=== PATIENT | male | born 1990 | race Caucasian/White ===

== ENCOUNTER 2016-09-21 08:16 | Inpatient (IN) | payer MEDICARE ==
[2016-09-21 14:12] VITALS: BMI 25.0
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
[2016-09-21] MEDS ORDERED: diphenhydrAMINE HCL 50 MG CAPSULE PO PRN (16:32)
[2016-09-21] MEDS ORDERED: hydrOXYzine PAMOATE 50 MG CAPSULE (FP) PO PRN (16:32)
[2016-09-21] MEDS ORDERED: MAGNESIUM HYDROX 2400MG/30ML ORAL SUSPENSION 30 ML CUP PO PRN (16:32)
[2016-09-21] MEDS ORDERED: guaiFENesin/D-METHORPHAN HB 10 ML UNIT-DOSE CUPS PO PRN (16:32)
[2016-09-21] MEDS ORDERED: chlordiazePOXIDE HCL 25 MG CAPSULE PO PRN (16:32)
[2016-09-21] MEDS ORDERED: MENTHOL/PHENOL 1 EACH UD MM PRN (16:32)
[2016-09-21] MEDS ORDERED: MAGNESIUM CITRATE 300 ML BOTTLE PO PRN (16:32)
[2016-09-21] MEDS ORDERED: NICOTINE POLACRILEX 4 MG GUM BC PRN (16:32)
[2016-09-21] MEDS ORDERED: LOPERAMIDE HCL 2 MG CAPSULE PO PRN (16:32)
[2016-09-21] MEDS ORDERED: MAG HYDROX/AL HYDROX/SIMETH 30 ML UNIT-DOSE CUP PO PRN (16:32)
[2016-09-21] MEDS ORDERED: IBUPROFEN 400 MG TABLET (FP) PO PRN (16:32)
[2016-09-21] MEDS ORDERED: ACETAMINOPHEN 325 MG TABLET (FP) PO PRN (16:32)
[2016-09-21] MEDS ORDERED: P-EPHED 60MG/TRIPROLIDI 2.5MG TABLET PO PRN (16:32)
[2016-09-21] MEDS ORDERED: WITCH HAZEL 50% (TUCKS) 40 PAD/JAR PAD TP PRN (16:37)
[2016-09-21] MEDS ORDERED: chlordiazePOXIDE HCL 25 MG CAPSULE PO ONE (17:15)
[2016-09-21] MEDS ORDERED: METHADONE HCL 10 MG TABLET (FOR DETOX USE ONLY) PO ONE ×2 (17:15→23:00)
[2016-09-21] MEDS: chlordiazePOXIDE HCL 25 MG CAPSULE PO SCH ×2 (18:05→22:39)
[2016-09-21] MEDS: NICOTINE 21 MG/24 HOURS TOPICAL PATCH TD SCH (18:07)
[2016-09-21] MEDS ORDERED: THIAMINE HCL 100 MG TABLET (FP) PO SCH (22:00)
[2016-09-21 22:44] LABS: URINE APPEARANCE CLOUDY; URINE BILIRUBIN NEGATIVE (NEGATIVE); URINE BLOOD NEGATIVE (NEGATIVE); URINE COLOR DKYELLOW; URINE GLUCOSE (UA) NEGATIVE (NEGATIVE); URINE KETONE NEGATIVE (NEGATIVE); URINE LEUK ESTERASE NEGATIVE (NEGATIVE); URINE NITRITE NEGATIVE (NEGATIVE); URINE PROTEIN NEGATIVE (NEGATIVE); URINE UROBILINOGEN 4.0 E.U/dl E.U./dl (0.2-1.0)
[2016-09-22] MEDS: chlordiazePOXIDE HCL 25 MG CAPSULE PO SCH ×2 (05:32→10:36)
[2016-09-22 09:39] VITALS: BP 117/72; PULSE 67; TEMP 97
[2016-09-22] MEDS ORDERED: METHADONE HCL 10 MG TABLET (FOR DETOX USE ONLY) PO SCH (10:00)
[2016-09-22] MEDS ORDERED: PRENATAL VITAMINS W/ FOLIC ACID TABLET (FP) PO SCH (10:00)
--- NOTE | 2016-09-22 10:09 | EKG ---
Test Reason : Blood Pressure : / mmHG Vent. Rate : 063 BPM Atrial Rate : 063 BPM P-R Int : 126 ms QRS Dur : 092 ms QT Int : 428 ms P-R-T Axes : 047 081 072 degrees QTc Int : 437 ms NORMAL SINUS RHYTHM NORMAL ECG NO PREVIOUS ECGS AVAILABLE Confirmed by BARBIE BARAJAS MD ([id number]) on 09/22/2016 10:09:37 AM Referred By: Confirmed By:BARBIE BARAJAS MD
[2016-09-22 10:21] LABS: MCH 29.9 pg (25.7-33.7); MCHC 33.8 g/dl (32.0-35.9); MEAN CELL VOLUME 88.4 fl (80-96); MEAN PLT VOLUME 9.5 fl (7.5-11.1); PLATELET COUNT 229 K/MM3 (134-434); RDW 13.3 % (11.9-15.9); WHITE BLOOD COUNT 8.3 K/mm3 (4.0-10.0)
[2016-09-22] MEDS: NICOTINE 21 MG/24 HOURS TOPICAL PATCH TD SCH (10:36)
[2016-09-22 11:41] LABS: ALK PHOS 69 U/L (45-117); ANION GAP 8 (8-16); BILIRUBIN,TOTAL 0.4 mg/dL (0.2-1.0); CALCIUM 8.9 mg/dL (8.5-10.1); CO2 27 mmol/L (21-32); COCKROFT - GAULT 159.59; CREATININE 0.9 mg/dL (0.7-1.3); GLUCOSE,RANDOM 87 mg/dL (74-106); SGOT/AST 62 U/L (15-37); SGPT/ALT 41 U/L (12-78); TOT PROT 7.4 g/dl (6.4-8.2)
--- NOTE | 2016-09-22 11:43 | DS ---
[facility] Detox Discharge Summary Admission Date: 09/21/16 Discharge Date: 09/22/16 - History Present History: Alcohol Dependence, Cannabis Dependence - Physical Exam Results Vital Signs: Vital Signs Temperature 97 F L 09/22/16 09:39 Pulse Rate 67 09/22/16 09:39 Respiratory Rate 18 09/22/16 09:39 Blood Pressure 117/72 09/22/16 09:39 O2 Sat by Pulse Oximetry (%) Pertinent Admission Physical Exam Findings: withdrawal sx Laboratory Last Values WBC 8.3 K/mm3 (4.0-10.0) 09/22/16 06:16 RBC 4.42 M/mm3 (4.00-5.60) 09/22/16 06:16 Hgb 13.2 GM/dL (11.7-16.9) 09/22/16 06:16 Hct 39.0 % (35.4-49) 09/22/16 06:16 MCV 88.4 fl (80-96) 09/22/16 06:16 MCHC 33.8 g/dl (32.0-35.9) 09/22/16 06:16 RDW 13.3 % (11.9-15.9) 09/22/16 06:16 Plt Count 229 K/MM3 (134-434) 09/22/16 06:16 MPV 9.5 fl (7.5-11.1) 09/22/16 06:16 Urine Color Dkyellow 09/21/16 21:30 Urine Appearance Cloudy 09/21/16 21:30 Urine pH 6.0 (5.0-8.0) 09/21/16 21:30 Ur Specific [place] 1.025 (1.001-1.035) 09/21/16 21:30 Urine Protein Negative (NEGATIVE) 09/21/16 21:30 Urine Glucose (UA) Negative (NEGATIVE) 09/21/16 21:30 Urine Ketones Negative (NEGATIVE) 09/21/16 21:30 Urine Blood Negative (NEGATIVE) 09/21/16 21:30 Urine Nitrite Negative (NEGATIVE) 09/21/16 21:30 Urine Bilirubin Negative (NEGATIVE) 09/21/16 21:30 Urine Urobilinogen 4.0 e.u/dl E.U./dl (0.2-1.0) 09/21/16 21:30 Ur Leukocyte Esterase Negative (NEGATIVE) 09/21/16 21:30 labs pending - Medication Discharge Medications: Ambulatory Orders NK [No Known Home Medication] 09/21/16 - Diagnosis (1) Alcohol dependence with uncomplicated withdrawal Status: Acute (2) Cannabis dependence, uncomplicated Status: Acute (3) Opioid dependence with withdrawal Status: Acute (4) Bipolar disorder Status: Chronic Qualifiers: Active/Remission status: remission status unspecified Qualified Code (s): F31.9 - Bipolar disorder, unspecified (5) Depression Status: Chronic Qualifiers: Depression Type: unspecified Qualified Code(s): F32.9 - Major depressive disorder, single episode, unspecified (6) Nicotine dependence Status: Acute Qualifiers: Nicotine product type: cigarettes Substance use status: uncomplicated Qualified Code(s): F17.210 - Nicotine dependence, cigarettes, uncomplicated - AMA Did Patient Leave Against Medical Advice: No (Patient discharged for not following protocol, pls see note)
--- NOTE | 2016-09-22 12:41 | PN ---
[facility] Progress Note Note: Patient was evaluated this morning, he denied acute distress except for mild withdrawal symptoms. Shortly after that, he was spotted by staff accepting cigarette from a discharged patient through a sealed window which was found opened. He was discharged for not following institutional policy.
[2016-09-22 13:19] LABS: HIV 1 & 2 AB NEGATIVE; HIV 1 AGp24 NEGATIVE
[2016-09-22] MEDS ORDERED: chlordiazePOXIDE HCL 25 MG CAPSULE PO SCH (17:00)
[2016-09-23] MEDS ORDERED: METHADONE HCL 5 MG TABLET (FOR DETOX USE ONLY) PO SCH (10:00)
[2016-09-23] MEDS ORDERED: chlordiazePOXIDE 5 MG CAPSULE PO SCH (17:00)
[2016-09-24] MEDS ORDERED: chlordiazePOXIDE HCL 10 MG CAPSULE PO SCH (17:00)
[2016-09-25] MEDS ORDERED: METHADONE HCL 10 MG TABLET (FOR DETOX USE ONLY) PO SCH (10:00)
[2016-09-26] MEDS ORDERED: METHADONE HCL 5 MG TABLET (FOR DETOX USE ONLY) PO SCH (06:00)
== END 2016-09-22 11:08 | disposition home or self-care (01) | DRG 773 ==
LOC: YASAS 08:16 → Y3N 15:46
PROVIDERS: ADMIT Internal Medicine; ATTEND Internal Medicine
PROC: HZ2ZZZZ Detoxification Services for Substance Abuse Treatment (ICD-10-PCS; principal; 2016-09-22)
DX: F11.23 Opioid dependence with withdrawal (principal); F10.230 Alcohol dependence with withdrawal, uncomplicated; F12.20 Cannabis dependence, uncomplicated; F17.210 Nicotine dependence, cigarettes, uncomplicated; F33.9 Major depressive disorder, recurrent, unspecified; F31.9 Bipolar disorder, unspecified; S05.92XA Unspecified injury of left eye and orbit, initial encounter; Z59.0 Homelessness; F91.8 Other conduct disorders
CPT/HCPCS: 36415; 80053; 81003; 85027; 86593; 87389; 93005; 93010

== ENCOUNTER 2017-03-28 01:26 | Inpatient (IN) | payer OTHER ==
--- NOTE | 2017-03-28 01:50 | HP ---
COWS - Scale Resting Pulse: 1= SC 81-100 Sweatin=Flushed/Facial Moisture Restless Observation: 5= Unable to Sit Still Pupil Size: 1= Pupils >than Normal Bone or Joint Aches: 4=Acute Joint/Muscle Pain Runny Nose/ Eye Tearin= Nasal Congestion GI Upset > 30mins: 3= Vomiting/Diarrhea Tremor Observation: 2= Slight Tremor Visible Yawning Observation: 0= None Anxiety or Irritability: 2=Irritable/Anxious Goose Flesh Skin: 0=Smooth Skin COWS Score: 21 Admission ROS [facility] Chief Complaint: seeking detox for heroin dependence Allergies/Adverse Reactions: Allergies Allergy/AdvReac Type Severity Reaction Status Date / Time Fish Containing Products Allergy Swelling Verified 09/21/16 15:38 No Known Drug Allergies Allergy Verified 03/28/17 01:44 NKDA Allergy Uncoded 09/21/16 15:38 History of Present Illness: 27 Y.O. MALE WITH HX/O OPIOID DEPENDNECE HER FOR ADMISSION TO DETOX. CLIENT IS KNOWN TO THIS PROGRAM LAST HERE 09/2016. HE IS SELF REFERRED. DENIES ANY SIGNIFICANT PERIOD OF CLEAN TIME. Exam Limitations: No Limitations - Ebola screening Have you traveled outside of the country in the last 21 days: No Have you had contact with anyone from an Ebola affected area: No Have you been sick,other than usual withdrawal symptoms: No Do you have a fever: No - Review of Systems Constitutional: Chills, Loss of Appetite, Malaise, Night Sweats, Changes in sleep, Unintentional Wgt. Loss EENT: reports: Nose Congestion, Dental Problems (MISSING TEETH) Respiratory: reports: No Symptoms reported Cardiac: reports: No Symptoms Reported GI: reports: Nausea, Poor Appetite, Vomiting : reports: Dysuria Musculoskeletal: reports: Back Pain, Joint Pain Integumentary: reports: No Symptoms Reported Neuro: reports: No Symptoms reported Endocrine: reports: No Symptoms Reported Hematology: reports: No Symptoms Reported Psychiatric: reports: Anxious, Depressed Other Systems: Reviewed and Negative Patient History - Patient Medical History Hx Anemia: No Hx Asthma: No Hx Chronic Obstructive Pulmonary Disease (COPD): No Hx Cancer: No Hx Cardiac Disorders: No Hx Congestive Heart Failure: No Hx Hypertension: No Hx Hypercholesterolemia: No Hx Pacemaker: No HX Cerebrovascular Accident: No Hx Seizures: No Hx Dementia: No Hx Diabetes: No Hx Gastrointestinal Disorders: No Hx Liver Disease: No Hx Genitourinary Disorders: No Hx Sexually Transmitted Disorders: No Hx Renal Disease (ESRD): No Hx Thyroid Disease: No Hx Human Immunodeficiency Virus (HIV): No Hx Hepatitis C: No Hx Depression: Yes Hx Suicide Attempt: No Hx Bipolar Disorder: Yes Hx Schizophrenia: No Other Medical History: SCHIZO AFEECTIVE - Patient Surgical History Past Surgical History: No Hx Neurologic Surgery: No Hx Cataract Extraction: No Hx Cardiac Surgery: No Hx Lung Surgery: No Hx Breast Surgery: No Hx Breast Biopsy: No Hx Abdominal Surgery: No Hx Appendectomy: No Hx Cholecystectomy: No Hx Genitourinary Surgery: No Hx Section: No Hx Orthopedic Surgery: No Anesthesia Reaction: No - PPD History Previous Implant?: Yes Documented Results: Negative w/o proof Implanted On Prior [facility] Admission?: Yes Date: 09/23/16 (ADMIN DC) PPD to be Administered?: Yes - Smoking Cessation Smoking history: Current every day smoker Have you smoked in the past 12 months: Yes Aproximately how many cigarettes per day: 30 Cigars Per Day: 0 Hx Chewing Tobacco Use: No Initiated information on smoking cessation: Yes 'Breaking Loose' booklet given: 03/28/17 - Substance & Tx. History Hx Alcohol Use: No Hx Substance Use: Yes Substance Use Type: Heroin Hx Substance Use Treatment: Yes ([facility]) - Substances Abused HEROIN Route: Injection Frequency: Daily Amount used: 6 Age of first use: 22 Date of Last Use: 03/26/17 Family Disease History - Family Disease History Family History: Denies Admission Physical Exam [facility] - Physical General Appearance: Yes: Appropriately Dressed, Tremorous, Anxious HEENTM: Yes: Nasal Congestion Respiratory: Yes: Chest Non-Tender, Lungs Clear, Normal Breath Sounds, No Respiratory Distress, No Accessory Muscle Use Neck: Yes: No masses,lesions,Nodules, Supple, Trachea in good position Breast: Yes: Breast Exam Deferred Cardiology: Yes: Regular Rhythm, Regular Rate, S1, S2 Abdominal: Yes: Normal Bowel Sounds, Non Tender, Flat, Soft Genitourinary: Yes: Dysuria (PT REPORTS) Back: Yes: Normal Inspection Musculoskeletal: Yes: full range of Motion, Gait Steady Extremities: Yes: Normal Capillary Refill, Normal Range of Motion, Non-Tender, Tremors Neurological: Yes: polisher balance screwhead II-XII NML intact, Fully Oriented, Alert, Motor Strength 5/5 Integumentary: Yes: Normal Color, Dry, Warm, Track Davis Lymphatic: Yes: Within Normal Limits - Diagnostic (1) Cannabis dependence, uncomplicated Current Visit: Yes Status: Chronic (2) Nicotine dependence Current Visit: Yes Status: Chronic Qualifiers: Nicotine product type: cigarettes Substance use status: uncomplicated Qualified Code(s): F17.210 - Nicotine dependence, cigarettes, uncomplicated; F17.210 - Nicotine dependence, cigarettes, uncomplicated (3) Opioid dependence with withdrawal Current Visit: Yes Status: Chronic (4) Cocaine dependence, uncomplicated Current Visit: Yes Status: Chronic Cleared for Admission [facility] - Detox or Rehab [facility] Level of Care: Medically Managed Detox Regimen/Protocol: Methadone [facility] Breath Alcohol Content Breath Alcohol Content: 0 Vital Signs - Vital Signs Vital Signs Refused: No Temperature: 96.1 F Temperature Source: Oral Pulse Rate: 97 Respiratory Rate: 20 Blood Pressure: 134/77 BP Location: Left Arm Blood Pressure Position: Sitting - Height Height: 6 ft 3 in - Weight Weight: 81.647 kg Weight Measurement Method: Standing Scale Body Mass Index (BMI): 22.5 Urine Drug Screen - Test Device Lot Number: [id number] Expiration Date: 11/30/18 - Control Is Test Valid: Yes - Results Drug Screen Negative: No Urine Drug Screen Results: THC-Marijuana, DENIZ-Cocaine, OPI-Opiates, AMP- Amphetamines, MET-Methamphetamine
[2017-03-28 02:01] VITALS: BMI 22.5
[2017-03-28] MEDS ORDERED: LOPERAMIDE HCL 2 MG CAPSULE PO PRN (02:01)
[2017-03-28] MEDS ORDERED: P-EPHED 60MG/TRIPROLIDI 2.5MG TABLET PO PRN (02:01)
[2017-03-28] MEDS ORDERED: METHADONE HCL 10 MG TABLET (FOR DETOX USE ONLY) PO ONE ×3 (02:01→23:00)
[2017-03-28] MEDS ORDERED: guaiFENesin/D-METHORPHAN HB 10 ML UNIT-DOSE CUPS PO PRN (02:01)
[2017-03-28] MEDS ORDERED: MAGNESIUM CITRATE 300 ML BOTTLE PO PRN (02:01)
[2017-03-28] MEDS ORDERED: MENTHOL/PHENOL 1 EACH UD MM PRN (02:01)
[2017-03-28] MEDS ORDERED: diphenhydrAMINE HCL 50 MG CAPSULE PO PRN (02:01)
[2017-03-28] MEDS ORDERED: MAGNESIUM HYDROX 2400MG/30ML ORAL SUSPENSION 30 ML CUP PO PRN (02:01)
[2017-03-28] MEDS ORDERED: ACETAMINOPHEN 325 MG TABLET (FP) PO PRN (02:01)
[2017-03-28] MEDS ORDERED: IBUPROFEN 400 MG TABLET (FP) PO PRN (02:01)
[2017-03-28] MEDS ORDERED: MAG HYDROX/AL HYDROX/SIMETH 30 ML UNIT-DOSE CUP PO PRN (02:01)
[2017-03-28] MEDS: diazePAM 5 MG TABLET PO PRN ×4 (02:27→22:44)
[2017-03-28 10:13] LABS: MCH 28.7 pg (25.7-33.7); MCHC 33.4 g/dl (32.0-35.9); MEAN CELL VOLUME 86.1 fl (80-96); MEAN PLT VOLUME 8.4 fl (7.5-11.1); PLATELET COUNT 260 K/MM3 (134-434); RDW 13.7 % (11.9-15.9); WHITE BLOOD COUNT 7.2 K/mm3 (4.0-10.0)
--- NOTE | 2017-03-28 10:15 | CONSULT ---
[facility] Psychiatric Consult - Data Date of interview: 03/28/17 Admission source: [facility] Identifying data: This is 27 years old male with psychiatric hospitalization history ointoxicated with: Cocaine, Cannabis, Opioids, Methamphetamins, Nicotine Substance Abuse History: Urine Drug Screen Results: THC-Marijuana, DENIZ-Cocaine, OPI-Opiates, AMP-Amphetamines, MET-Methamphetamine. - Smoking Cessation. Smoking history: Current every day smoker. Have you smoked in the past 12 months: Yes. Aproximately how many cigarettes per day: 30. Cigars Per Day: 0. Hx Chewing Tobacco Use: No. Initiated information on smoking cessation: Yes. 'Breaking Loose' booklet given: 03/28/17. - Substance & Tx. History. Hx Alcohol Use: No. Hx Substance Use: Yes. Substance Use Type: Heroin. Hx Substance Use Treatment: Yes ([facility]). - Substances Abused. HEROIN. Route: Injection. Frequency: Daily. Amount used: 6. Age of first use: 22. Date of Last Use: 03/26/17 Medical History: Left beye injury history Psychiatric History: Reports hsitory of Bipolar disorder, [facility];ear psychiatric hospitalization on n2016 for safety at [facility], reports taking prior to admission: Seroquel 100mg po qhs Physical/Sexual Abuse/Trauma History: Denies Additional Comment: Urine Drug Screen Results: THC-Marijuana, DENIZ-Cocaine, OPI- Opiates, AMP-Amphetamines, MET-Methamphetamine. Seroquel 100mg po qhs Mental Status Exam - Mental Status Exam Alert and Oriented to: Place, Person Cognitive Function: Fair Patient Appearance: Well Groomed Mood: Apprehensive Affect: Mood Congruent Patient Behavior: Guarded, Cooperative Speech Pattern: Appropriate Voice Loudness: Normal Thought Process: Goal Oriented Thought Disorder: Being Controlled Hallucinations: Denies Suicidal Ideation: Denies Homicidal Ideation: Denies Insight/Judgement: Fair Sleep: Difficulty falling asleep Appetite: Fair Muscle strength/Tone: Normal Gait/Station: Normal Additional Comments: Seroquel 100mg po qhs Psychiatric Findings - Problem List ([place] 1, 2,3) (1) Cannabis dependence, uncomplicated Current Visit: Yes Status: Chronic (2) Cocaine dependence, uncomplicated Current Visit: Yes Status: Chronic (3) Nicotine dependence Current Visit: Yes Status: Chronic Qualifiers: Nicotine product type: cigarettes Substance use status: uncomplicated Qualified Code(s): F17.210 - Nicotine dependence, cigarettes, uncomplicated; F17.210 - Nicotine dependence, cigarettes, uncomplicated (4) Opioid dependence with withdrawal Current Visit: Yes Status: Chronic (5) Alcohol dependence with uncomplicated withdrawal Current Visit: No Status: Acute (6) Bipolar disorder Current Visit: No Status: Chronic Qualifiers: Active/Remission status: remission status unspecified Qualified Code (s): F31.9 - Bipolar disorder, unspecified; F31.9 - Bipolar disorder, unspecified; F31.9 - Bipolar disorder, unspecified; F31.9 - Bipolar disorder, unspecified (7) Drug-induced mood disorder Current Visit: Yes Status: Acute - Initial Treatment Plan Initial Treatment Plan: Seroquel 100mg po qhs
[2017-03-28] MEDS: PRENATAL VITAMINS W/ FOLIC ACID TABLET (FP) PO SCH (10:18)
[2017-03-28] MEDS: NICOTINE 21 MG/24 HOURS TOPICAL PATCH TD SCH (10:19)
--- NOTE | 2017-03-28 10:44 | EKG ---
Test Reason : Blood Pressure : / mmHG Vent. Rate : 082 BPM Atrial Rate : 082 BPM P-R Int : 136 ms QRS Dur : 096 ms QT Int : 390 ms P-R-T Axes : 072 084 072 degrees QTc Int : 455 ms NORMAL SINUS RHYTHM NORMAL ECG WHEN COMPARED WITH ECG OF 21-SEP-2016 17:13, NO SIGNIFICANT CHANGE WAS FOUND Confirmed by SIDRA CRUZ MD ([id number]) on 03/28/2017 10:44:34 AM Referred By: Confirmed By:SIDRA CRUZ MD
[2017-03-28 11:13] LABS: ALBUMIN 3.1 g/dl (3.4-5.0); ALK PHOS 75 U/L (45-117); ANION GAP 8 (8-16); BILIRUBIN,TOTAL 0.4 mg/dL (0.2-1.0); CALCIUM 8.1 mg/dL (8.5-10.1); CO2 27 mmol/L (21-32); CREATININE 0.6 mg/dL (0.7-1.3); GLUCOSE,RANDOM 85 mg/dL (74-106); SGOT/AST 56 U/L (15-37); SGPT/ALT 40 U/L (12-78); TOT PROT 6.2 g/dl (6.4-8.2)
[2017-03-28] MEDS ORDERED: POTASSIUM CHLORIDE TABS 20 MEQ TABLET.ER (FP) PO ONE (13:05)
--- NOTE | 2017-03-28 13:07 | PN ---
[facility] COWS - Scale Resting Pulse: 0= IN 80 or Below Sweatin= Chills/Flushing Restless Observation: 1= Difficult to Sit Still Pupil Size: 0= Normal to Room Light Bone or Joint Aches: 2= Severe Diffuse Aches Runny Nose/ Eye Tearin= None GI Upset > 30mins: 3= Vomiting/Diarrhea Tremor Observation of Outstretched Hands: 2= Slight Tremor Visible Yawning Observation: 1= 1-2x During Session Anxiety or Irritability: 2=Irritable/Anxious Goose Flesh Skin: 3=Piloerection COWS Score: 15 [facility]HS Progress Note (SOAP) Subjective: Sweating, Vomiting, H/A, Body Aches, Tremors. Objective: PT. A & O X 2 (DISORIENTED ABOUT DAY / DATE). PT. OBSERVED AMBULATING ON UNIT. NO ACUTE DISTRESS. 03/28/17 13:04 Vital Signs Temperature 96.8 F L 03/28/17 09:10 Pulse Rate 78 03/28/17 09:10 Respiratory Rate 20 03/28/17 09:10 Blood Pressure 131/74 03/28/17 09:10 O2 Sat by Pulse Oximetry (%) Laboratory Tests 03/28/17 03/28/17 07:00 07:00 WBC 7.2 RBC 4.03 Hgb 11.6 L D Hct 34.7 L MCV 86.1 MCH 28.7 MCHC 33.4 RDW 13.7 Plt Count 260 MPV 8.4 D Sodium 137 Potassium 3.1 L D Chloride 102 Carbon Dioxide 27 Anion Gap 8 BUN 10 D Creatinine 0.6 L D Creat Clearance w eGFR > 60 Random Glucose 85 Calcium 8.1 L Total Bilirubin 0.4 AST 56 H ALT 40 Alkaline Phosphatase 75 Total Protein 6.2 L Albumin 3.1 L D LABS NOTED. RPR, HIV AB, AND UA RESULTS PENDING. 03/28/17 13:06 03/28/17 13:07 Assessment: 03/28/17 13:04 WITHDRAWAL SYMPTOMS. Plan: CONTINUE DETOX. K-DUR, 20 MEQ PO X 1 NOW, THEN 20 MEQ PO BID AFTER.
[2017-03-28 15:15] LABS: HIV 1 & 2 AB NEGATIVE; HIV 1 AGp24 NEGATIVE
[2017-03-28] MEDS: POTASSIUM CHLORIDE TABS 20 MEQ TABLET.ER (FP) PO SCH (17:41)
[2017-03-28] MEDS: THIAMINE HCL 100 MG TABLET (FP) PO SCH (22:44)
[2017-03-28] MEDS: QUEtiapine FUMARATE 100 MG TABLET (FP) PO SCH (22:44)
[2017-03-29] MEDS ORDERED: METHADONE HCL 10 MG TABLET (FOR DETOX USE ONLY) PO ONE (10:00)
[2017-03-29] MEDS: NICOTINE 21 MG/24 HOURS TOPICAL PATCH TD SCH (10:38)
[2017-03-29] MEDS: POTASSIUM CHLORIDE TABS 20 MEQ TABLET.ER (FP) PO SCH ×2 (10:40→19:30)
[2017-03-29] MEDS: PRENATAL VITAMINS W/ FOLIC ACID TABLET (FP) PO SCH (10:40)
[2017-03-29] MEDS: diazePAM 5 MG TABLET PO PRN ×2 (10:40→22:21)
--- NOTE | 2017-03-29 12:33 | PN ---
[facility] COWS - Scale Resting Pulse: 1= NC 81-100 Sweatin= Chills/Flushing Restless Observation: 1= Difficult to Sit Still Pupil Size: 0= Normal to Room Light Bone or Joint Aches: 2= Severe Diffuse Aches Runny Nose/ Eye Tearin= Nasal Congestion GI Upset > 30mins: 2= Nausea/Diarrhea Tremor Observation of Outstretched Hands: 0= None Yawning Observation: 1= 1-2x During Session Anxiety or Irritability: 2=Irritable/Anxious Goose Flesh Skin: 3=Piloerection COWS Score: 14 B[facility] Progress Note (SOAP) Subjective: Sweating, Fatigue, Diarrhea, Stomach Cramping, Body Aches. Objective: PT. A & O X 2 (DISORIENTED ABOUT DAY /DATE). PT. OBSERVED AMBULATING ON UNIT. NO ACUTE DISTRESS. 03/29/17 12:35 Vital Signs Temperature 97.5 F L 03/29/17 10:00 Pulse Rate 99 H 03/29/17 10:00 Respiratory Rate 18 03/29/17 10:00 Blood Pressure 126/76 03/29/17 10:00 O2 Sat by Pulse Oximetry (%) Laboratory Tests 03/28/17 03/28/17 03/28/17 07:00 07:00 07:00 WBC 7.2 RBC 4.03 Hgb 11.6 L D Hct 34.7 L MCV 86.1 MCH 28.7 MCHC 33.4 RDW 13.7 Plt Count 260 MPV 8.4 D Sodium 137 Potassium 3.1 L D Chloride 102 Carbon Dioxide 27 Anion Gap 8 BUN 10 D Creatinine 0.6 L D Creat Clearance w eGFR > 60 Random Glucose 85 Calcium 8.1 L Total Bilirubin 0.4 AST 56 H ALT 40 Alkaline Phosphatase 75 Total Protein 6.2 L Albumin 3.1 L D RPR Titer Nonreactive HIV 1&2 Antibody Screen HIV P24 Antigen 03/28/17 07:00 WBC RBC Hgb Hct MCV MCH MCHC RDW Plt Count MPV Sodium Potassium Chloride Carbon Dioxide Anion Gap BUN Creatinine Creat Clearance w eGFR Random Glucose Calcium Total Bilirubin AST ALT Alkaline Phosphatase Total Protein Albumin RPR Titer HIV 1&2 Antibody Screen Negative HIV P24 Antigen Negative LABS NOTED. UA RESULTS PENDING. 03/29/17 12:37 Assessment: 03/29/17 12:36 WITHDRAWAL SYMPTOMS. Plan: CONTINUE DETOX.
[2017-03-29] MEDS: QUEtiapine FUMARATE 100 MG TABLET (FP) PO SCH (22:21)
[2017-03-29] MEDS: THIAMINE HCL 100 MG TABLET (FP) PO SCH (22:21)
[2017-03-30 09:37] VITALS: TEMP 97.2
[2017-03-30] MEDS ORDERED: METHADONE HCL 5 MG TABLET (FOR DETOX USE ONLY) PO ONE (10:00)
[2017-03-30] MEDS: PRENATAL VITAMINS W/ FOLIC ACID TABLET (FP) PO SCH (10:22)
[2017-03-30] MEDS: POTASSIUM CHLORIDE TABS 20 MEQ TABLET.ER (FP) PO SCH (10:22)
[2017-03-30] MEDS: NICOTINE 21 MG/24 HOURS TOPICAL PATCH TD SCH (10:22)
[2017-03-30] MEDS: diazePAM 5 MG TABLET PO PRN (10:23)
--- NOTE | 2017-03-30 13:08 | PN ---
[facility] Progress Note Note: Psychiatry Attending's note : Approached by patient. Issue : insomnia. " Seroquel at 100 mg is doing nothing." Mr Emeterio endorses history of efficacy at 200 mg/hs. Patient is informed of side effects/benefits of seroquel. Also made aware of virtues of sleep hygiene. Benign hospital course with the exception of insomnia. Intervention : Seroquel is raised to 200 mg po at bedtime. Patient is in agreement with this careplan. Will follow response.
[2017-03-30 13:37] VITALS: BP 121/75; PULSE 100
--- NOTE | 2017-03-30 14:40 | PN ---
[facility] Progress Note (SOAP) Subjective: Body aches, Hot / Cold sensations, Interrupted Sleep, Anxious. Objective: PT. A & O X 2 (DISORIENTED ABOUT DAY /DATE). PT. OBSERVED AMBULATING ON UNIT. NO ACUTE DISTRESS. 03/30/17 14:36 Vital Signs Temperature 97.2 F L 03/30/17 13:36 Pulse Rate 100 H 03/30/17 13:36 Respiratory Rate 18 03/30/17 13:36 Blood Pressure 121/75 03/30/17 13:36 O2 Sat by Pulse Oximetry (%) Laboratory Tests 03/28/17 03/28/17 03/28/17 07:00 07:00 07:00 WBC 7.2 RBC 4.03 Hgb 11.6 L D Hct 34.7 L MCV 86.1 MCH 28.7 MCHC 33.4 RDW 13.7 Plt Count 260 MPV 8.4 D Sodium 137 Potassium 3.1 L D Chloride 102 Carbon Dioxide 27 Anion Gap 8 BUN 10 D Creatinine 0.6 L D Creat Clearance w eGFR > 60 Random Glucose 85 Calcium 8.1 L Total Bilirubin 0.4 AST 56 H ALT 40 Alkaline Phosphatase 75 Total Protein 6.2 L Albumin 3.1 L D RPR Titer Nonreactive HIV 1&2 Antibody Screen HIV P24 Antigen 03/28/17 07:00 WBC RBC Hgb Hct MCV MCH MCHC RDW Plt Count MPV Sodium Potassium Chloride Carbon Dioxide Anion Gap BUN Creatinine Creat Clearance w eGFR Random Glucose Calcium Total Bilirubin AST ALT Alkaline Phosphatase Total Protein Albumin RPR Titer HIV 1&2 Antibody Screen Negative HIV P24 Antigen Negative LABS NOTED. UA RESULTS PENDING. 03/30/17 14:39 Assessment: 03/30/17 14:36 WITHDRAWAL SYMPTOMS. HYPOKALEMIA. 03/30/17 14:38 Plan: CONTINUE DETOX. CONTINUE K-DUR. INCREASE DAILY PO FLUID INTAKE.
--- NOTE | 2017-03-30 15:55 | DS ---
[facility] Detox Discharge Summary Admission Date: 03/28/17 Discharge Date: 03/30/17 - History Present History: Alcohol Dependence, Cannabis Dependence, Cocaine Dependence Additional Comments: PATIENT DOES NOT WISH TO STAY TO COMPLETE DETOX REGIMEN. RISKS OF LEAVING DETOX UNIT PRIOR TO COMPLETION OF DETOX REGIMEN EXPLAINED TO PATIENT. PATIENT ADVISED TO GO IMMEDAITELY TO NEAREST ER SHOULD ANY INTOLERABLE DETOX SYMPTOMS DEVELOP AT ANY TIME. PATIENT VERBALLY ABUSIVE AND CONFRONTATIONAL WITH STAFF AT TIME OF LEAVING DETOX UNIT. PATIENT LEFT UNIT IN STABLE MEDICAL CONDITION. Pertinent Past History: Nicotine Dependence, Depression, Bipolar Disorder, Schizoaffective Disorder. - Physical Exam Results Vital Signs: Vital Signs Temperature 97.2 F L 03/30/17 13:36 Pulse Rate 100 H 03/30/17 13:36 Respiratory Rate 18 03/30/17 13:36 Blood Pressure 121/75 03/30/17 13:36 O2 Sat by Pulse Oximetry (%) Pertinent Admission Physical Exam Findings: WITHDRAWAL SYMPTOMS. Laboratory Tests 03/28/17 03/28/17 03/28/17 07:00 07:00 07:00 WBC 7.2 RBC 4.03 Hgb 11.6 L D Hct 34.7 L MCV 86.1 MCH 28.7 MCHC 33.4 RDW 13.7 Plt Count 260 MPV 8.4 D Sodium 137 Potassium 3.1 L D Chloride 102 Carbon Dioxide 27 Anion Gap 8 BUN 10 D Creatinine 0.6 L D Creat Clearance w eGFR > 60 Random Glucose 85 Calcium 8.1 L Total Bilirubin 0.4 AST 56 H ALT 40 Alkaline Phosphatase 75 Total Protein 6.2 L Albumin 3.1 L D RPR Titer Nonreactive HIV 1&2 Antibody Screen HIV P24 Antigen 03/28/17 07:00 WBC RBC Hgb Hct MCV MCH MCHC RDW Plt Count MPV Sodium Potassium Chloride Carbon Dioxide Anion Gap BUN Creatinine Creat Clearance w eGFR Random Glucose Calcium Total Bilirubin AST ALT Alkaline Phosphatase Total Protein Albumin RPR Titer HIV 1&2 Antibody Screen Negative HIV P24 Antigen Negative LABS NOTED. - Treatment Hospital Course: Detoxed Safely - Medication Discharge Medications: Ambulatory Orders Quetiapine Fumarate [Seroquel] 100 mg PO HS #30 tablet 03/28/17 - Diagnosis (1) Drug-induced mood disorder Status: Acute (2) Cannabis dependence, uncomplicated Status: Chronic (3) Cocaine dependence, uncomplicated Status: Chronic (4) Nicotine dependence Status: Chronic Qualifiers: Nicotine product type: cigarettes Substance use status: uncomplicated Qualified Code(s): F17.210 - Nicotine dependence, cigarettes, uncomplicated; F17.210 - Nicotine dependence, cigarettes, uncomplicated (5) Opioid dependence with withdrawal Status: Acute (6) Alcohol dependence with uncomplicated withdrawal Status: Acute (7) Bipolar disorder Status: Chronic Qualifiers: Active/Remission status: remission status unspecified Qualified Code (s): F31.9 - Bipolar disorder, unspecified; F31.9 - Bipolar disorder, unspecified; F31.9 - Bipolar disorder, unspecified; F31.9 - Bipolar disorder, unspecified - AMA Did Patient Leave Against Medical Advice: Yes (PATIENT DID NOT WISH TO STAY TO COMPLETE DEDTOX REGIMEN.)
[2017-03-30] MEDS ORDERED: QUEtiapine FUMARATE 200 MG TABLET PO SCH (22:00)
[2017-03-31] MEDS ORDERED: METHADONE HCL 5 MG TABLET (FOR DETOX USE ONLY) PO ONE (10:00)
[2017-04-01] MEDS ORDERED: METHADONE HCL 10 MG TABLET (FOR DETOX USE ONLY) PO ONE (10:00)
[2017-04-02] MEDS ORDERED: METHADONE HCL 5 MG TABLET (FOR DETOX USE ONLY) PO ONE (06:00)
== END 2017-03-30 15:04 | disposition left against medical advice (07) | DRG 770 ==
LOC: YASAS 01:26 → Y3N 01:53
PROVIDERS: ADMIT Internal Medicine; ATTEND Internal Medicine
PROC: HZ2ZZZZ Detoxification Services for Substance Abuse Treatment (ICD-10-PCS; principal; 2017-03-28)
DX: F11.23 Opioid dependence with withdrawal (principal); F10.230 Alcohol dependence with withdrawal, uncomplicated; F14.20 Cocaine dependence, uncomplicated; F12.10 Cannabis abuse, uncomplicated; F17.210 Nicotine dependence, cigarettes, uncomplicated; F19.24 Other psychoactive substance dependence with psychoactive substance-induced mood disorder; F31.9 Bipolar disorder, unspecified; F25.9 Schizoaffective disorder, unspecified
CPT/HCPCS: 36415; 80053; 85027; 86593; 87389; 93005; 93010